=== PATIENT | male | born 1995 | race American Indian/Alaskan Native ===

== ENCOUNTER 2020-01-06 22:09 | Emergency (ER) | payer OTHER ==
[~2020-01-06] VITALS: Ht 177.8 cm; Wt 86.2 kg
== END 2020-01-06 23:58 | disposition home or self-care (01) ==
LOC: ER 22:09
DX: R05 Cough (principal); R06.02 Shortness of breath
CPT/HCPCS: 94640; 99283-25

== ENCOUNTER 2020-01-20 02:25 | Emergency (ER) | payer BC ==
[~2020-01-20] VITALS: Ht 177.8 cm; Wt 86.2 kg
[2020-01-20 03:44] LABS: BASOPHILS ABSOLUTE AUTO 0.05 K/mm3 (0.00-0.23); BASOPHILS PERCENT AUTO 1 % (0-2); EOSINOPHILS ABSOLUTE AUTO 0.22 K/mm3 (0.00-0.68); EOSINOPHILS PERCENT AUTO 3 % (0-6); Hematocrit 48.8 % (37.0-53.0); IMMATURE GRAN ABSOLUTE AUTO 0.05 K/mm3 (0.00-0.10); IMMATURE GRAN PERCENT AUTO 1 % (0-1); LYMPHOCYTES ABSOLUTE AUTO 2.61 K/mm3 (0.84-5.20); LYMPHOCYTES PERCENT AUTO 33 % (21-46); MONOCYTES ABSOLUTE AUTO 0.74 K/mm3 (0.16-1.47); MONOCYTES PERCENT AUTO 9 % (4-13); Mean Corpuscular HGB 27.1 pg (26.0-34.0); Mean Corpuscular HGB Conc 32.8 g/dL (31.5-36.5); Mean Corpuscular Volume 83 fL (80-100); Mean Platelet Volume 9.2 fL (9.1-12.4); NEUTROPHILS ABSOLUTE AUTO 4.32 K/mm3 (1.96-9.15); NEUTROPHILS PERCENT AUTO 54 % (41-73); Platelet Count 299 K/mm3 (150-400); RDW Coefficient Variation 12.7 % (11.7-14.2); RDW Standard Deviation 38.5 fL (35.1-46.3); White Blood Cell Count 7.99 K/mm3 (4.00-11.30)
[2020-01-20 04:09] LABS: Alanine Aminotransfer (ALT/SGP 38 U/L (12-78); Albumin/Globulin Ratio 1.2 (0.8-1.8); Alk Phos 68 U/L (50-136); Anion Gap 6 mmol/L (6-16); Aspartate Aminotrans (AST/SGOT 23 U/L (12-37); Bilirubin, Total 0.1 mg/dL (0.1-1.0); Blood Urea Nitrogen 12 mg/dL (8-24); Bun/Creatinine Ratio 14.7 (12.0-20.0); CO2, Blood 26 mmol/L (21-32); Calcium, Blood 8.6 mg/dL (8.5-10.1); Chloride, Blood 109 mmol/L (98-108); Creatinine, Blood 0.82 mg/dL (0.60-1.20); Globulin, Blood 3.2 g/dL (2.2-4.0); Glomerular Filtration Rate >60 (60-); Glucose, Blood 115 mg/dL (70-99); Potassium, Blood 3.4 mmol/L (3.5-5.5); Sodium, Blood 141 mmol/L (136-145); Total Protein, Blood 7.2 g/dL (6.4-8.2)
== END 2020-01-20 04:49 | disposition home or self-care (01) ==
LOC: ER 02:25
PROVIDERS: Student in an Organized Health Care Education/Training Program
DX: R10.13 Epigastric pain (principal); F17.200 Nicotine dependence, unspecified, uncomplicated
CPT/HCPCS: 36415; 80053; 83690; 85025; 99283

== ENCOUNTER 2020-04-04 17:54 | Emergency (ER) | payer BC ==
[~2020-04-04] VITALS: Ht 180.3 cm; Wt 90.7 kg
[2020-04-04] MEDS ORDERED: Percocet 5-3251 EACH PO (21:41)
== END 2020-04-04 22:19 | disposition home or self-care (01) ==
LOC: ER 17:54
DX: S82.841A Displaced bimalleolar fracture of right lower leg, initial encounter for closed fracture (principal); F17.200 Nicotine dependence, unspecified, uncomplicated; X50.1XXA Overexertion from prolonged static or awkward postures, initial encounter; Y93.89 Activity, other specified
CPT/HCPCS: 27810; 29505; 73600; 76000; 96374-59; 99152; 99283-25; A9270; J2704; J3010; J7030

== ENCOUNTER 2021-05-21 01:02 | Emergency (ER) | payer BC ==
[~2021-05-21] VITALS: Ht 177.8 cm; Wt 90.7 kg
[~2021-05-21 01:02] MED LIST: Percocet 5-3251 EACH PO
== END 2021-05-21 03:34 | disposition home or self-care (01) ==
LOC: ER 01:02
DX: M79.661 Pain in right lower leg (principal)
CPT/HCPCS: 99282

== ENCOUNTER 2021-09-02 06:36 | Emergency (ER) | payer BC ==
[~2021-09-02] VITALS: Ht 175.3 cm; Wt 86.2 kg
[2021-09-02] MEDS ORDERED: ONDA4ODT MM (09:05)
[2021-09-02] MEDS ORDERED: OMEP20ER PO (09:05)
== END 2021-09-02 09:15 | disposition home or self-care (01) ==
LOC: ER 06:36
DX: U07.1 COVID-19 (principal); K29.70 Gastritis, unspecified, without bleeding; F17.210 Nicotine dependence, cigarettes, uncomplicated
CPT/HCPCS: 99283

== ENCOUNTER 2022-01-11 00:06 | Emergency (ER) | payer BC ==
[~2022-01-11] VITALS: Ht 170.2 cm; Wt 86.2 kg
[~2022-01-11 00:06] MED LIST changes: +OMEP20ER PO; +ONDA4ODT MM
== END 2022-01-11 00:49 | disposition home or self-care (01) ==
LOC: ER 00:06
DX: S61.212A Laceration without foreign body of right middle finger without damage to nail, initial encounter (principal); F17.210 Nicotine dependence, cigarettes, uncomplicated; W45.8XXA Other foreign body or object entering through skin, initial encounter; Z79.899 Other long term (current) drug therapy
CPT/HCPCS: 12001; 99282

== ENCOUNTER 2022-09-22 13:15 | Emergency (ER) | payer OTHER, BC ==
[~2022-09-22] VITALS: Ht 177.8 cm; Wt 86.2 kg
[2022-09-22 13:45] VITALS: BP 123/87
[2022-09-22] MEDS ORDERED: MORP15ER PO ×2 (15:59→16:03)
[2022-09-22] MEDS ORDERED: ONDA4ODT MM ×2 (15:59→16:03)
== END 2022-09-22 16:18 | disposition home or self-care (01) ==
LOC: ER 13:15
DX: S92.331A Displaced fracture of third metatarsal bone, right foot, initial encounter for closed fracture (principal); S92.341A Displaced fracture of fourth metatarsal bone, right foot, initial encounter for closed fracture; S92.351A Displaced fracture of fifth metatarsal bone, right foot, initial encounter for closed fracture; F17.200 Nicotine dependence, unspecified, uncomplicated; V20.49XA Other motorcycle driver injured in collision with pedestrian or animal in traffic accident, initial encounter
CPT/HCPCS: 29515; 73502; 73610; 73630; 96374-59; 96375-59; 99283-25; A9270; J1885; J3010

== ENCOUNTER 2022-09-27 19:42 | Emergency (ER) | payer OTHER, BC ==
[~2022-09-27] VITALS: Ht 175.3 cm; Wt 87.1 kg
[~2022-09-27 19:42] MED LIST changes: +MORP15ER PO
[2022-09-27 19:47] VITALS: BP 121/80
[2022-09-27] MEDS ORDERED: MORP15ER PO (20:24)
== END 2022-09-27 20:45 | disposition home or self-care (01) ==
LOC: ER 19:42
DX: Z76.0 Encounter for issue of repeat prescription (principal); T84.197D Other mechanical complication of internal fixation device of bone of left lower leg, subsequent encounter; S92.331D Displaced fracture of third metatarsal bone, right foot, subsequent encounter for fracture with routine healing; S92.341D Displaced fracture of fourth metatarsal bone, right foot, subsequent encounter for fracture with routine healing; S92.351D Displaced fracture of fifth metatarsal bone, right foot, subsequent encounter for fracture with routine healing; Z72.0 Tobacco use
CPT/HCPCS: 96372; 99281-25; A9270; J1885

== ENCOUNTER 2023-04-22 08:53 | Day surgery (SDC) | payer BC ==
[~2023-04-22] VITALS: Ht 175.3 cm; Wt 94.8 kg
[~2023-04-22 08:53] MED LIST changes: +Ropivacaine 0.5% HCl/Pf 5 MG/ML 20ML VIAL ONE
[2023-04-22] MEDS ORDERED: NS 50 ML IV ONE (09:04)
[2023-04-22] MEDS ORDERED: CeFAZolin Sodium 2,000 MG VIAL ONE (09:04)
[2023-04-22] MEDS ORDERED: Lactated Ringer's 1,000 ML IV ONE ×2 (09:20→11:34)
--- NOTE | 2023-04-22 10:21 | NUR ---
04/22/23 1021 JANIE THOMPSON PT RESTING IN PREOP - WAITING TO GO BACK. DR. PINO 20 MINS DELAYED. PT HAS CALL LIGHT IN REACH.
[2023-04-22] MEDS ORDERED: propofoL 20 ML IV ONE (10:50)
[2023-04-22] MEDS ORDERED: FentaNYL Citrate 50 MCG/ML 2 ML Injection ONE ×3 (10:50→13:18)
[2023-04-22] MEDS ORDERED: Ondansetron HCl 2 MG / ML 2ML Vial ONE (11:01)
[2023-04-22] MEDS ORDERED: Rocuronium Bromide 10 MG/ML 5ML Injection IV ONE (11:01)
[2023-04-22] MEDS ORDERED: Dexamethasone Sod Phos 10 MG/ML 1ML VIAL ONE (11:01)
[2023-04-22] MEDS ORDERED: EPINEPhrine HCl 1 MG/ML 1ML Amp XX ONE (11:03)
--- NOTE | 2023-04-22 11:10 | NUR ---
04/22/23 1110 Faye Oropeza ROPIVACAINE 0.5% 20 ML MIXED & VERIFIED W/ EPI 0.1 ML (1MG/ML) TO MAKE ROPIVACAINE 0.5% 1:200,000 FOR INJECTION AT [facility] BY DR PINO.
[2023-04-22] MEDS ORDERED: Sugammadex Sodium 200 MG/2ML SDV (100 MG/ML) ONE (11:49)
[2023-04-22] MEDS ORDERED: HYDROcodone 5-APAP 325 TAB ONE (12:47)
[2023-04-22 13:32] VITALS: BP 120/87
== END 2023-04-22 13:45 | disposition home or self-care (01) ==
LOC: ORSCSDS 08:53
PROVIDERS: Podiatrist Foot & Ankle Surgery
PROC: 0SGP04Z Fusion of Right Toe Phalangeal Joint with Internal Fixation Device, Open Approach (ICD-10-PCS; principal; 2023-04-22 10:15)
DX: M20.41 Other hammer toe(s) (acquired), right foot (principal); K21.9 Gastro-esophageal reflux disease without esophagitis; F17.210 Nicotine dependence, cigarettes, uncomplicated
CPT/HCPCS: A9270; C1713; J0171; J0690; J1100; J2405; J2704; J2795; J3010; J7120

== ENCOUNTER → 2023-11-26 | Outpatient (CLI) | payer BC ==
[~2023-11-26] MED LIST changes: +DOC250 PO; +ONDA4 PO; +OXYC5 PO; -Ropivacaine 0.5% HCl/Pf 5 MG/ML 20ML VIAL ONE; +SENN187 PO
[2023-11-29 19:55] LABS: APTIMA MEDIA TYPE Urine; C. TRACHOMATIS BY TMA Positive (Negative); N. GONORRHOEAE BY TMA Negative (Negative); SPECIMEN SOURCE Urine
== END ==
LOC: LAB 15:15 → LAB SHORT 15:15
PROVIDERS: Physician Assistant
DX: Z20.2 Contact with and (suspected) exposure to infections with a predominantly sexual mode of transmission (principal)
CPT/HCPCS: 87491; 87591

== ENCOUNTER 2024-09-11 01:34 | Emergency (ER) | payer OTHER, BC ==
[~2024-09-11] VITALS: Ht 177.8 cm; Wt 90.7 kg
[2024-09-11 02:13] LABS: BASOPHILS ABSOLUTE AUTO 0.03 K/mm3 (0.00-0.23); BASOPHILS PERCENT AUTO 0 % (0-2); EOSINOPHILS ABSOLUTE AUTO 0.05 K/mm3 (0.00-0.68); EOSINOPHILS PERCENT AUTO 1 % (0-6); Hematocrit 46.7 % (37.0-53.0); Hemoglobin 16.2 g/dL (13.5-17.5); IMMATURE GRAN ABSOLUTE AUTO 0.02 K/mm3 (0.00-0.10); IMMATURE GRAN PERCENT AUTO 0 % (0-1); LYMPHOCYTES ABSOLUTE AUTO 1.75 K/mm3 (0.84-5.20); LYMPHOCYTES PERCENT AUTO 20 % (21-46); MONOCYTES ABSOLUTE AUTO 0.81 K/mm3 (0.16-1.47); MONOCYTES PERCENT AUTO 9 % (4-13); Mean Corpuscular HGB Conc 34.7 g/dL (31.5-36.5); Mean Corpuscular Volume 82 fL (80-100); NEUTROPHILS ABSOLUTE AUTO 6.06 K/mm3 (1.96-9.15); NEUTROPHILS PERCENT AUTO 70 % (41-73); NRBC ABSOLUTE 0.00 K/mm3 (0.00-0.02); NRBC Auto 0.0 /100 WBC (0.0-0.2); Platelet Count 263 K/mm3 (150-400); RDW Coefficient Variation 13.1 % (11.7-14.2); RDW Standard Deviation 39.0 fL (35.1-46.3)
[2024-09-11] MEDS ORDERED: Ondansetron HCl 2 MG / ML 2ML Vial IV ONE (02:15)
[2024-09-11] MEDS ORDERED: Ketorolac Tromethamine 15mg Vial IV ONE (02:15)
[2024-09-11 02:36] LABS: Alanine Aminotransfer (ALT/SGP 85.0 U/L (12-78); Albumin, Blood 3.8 g/dL (3.4-5.0); Albumin/Globulin Ratio 1.2 (0.8-1.8); Anion Gap 9.0 mmol/L (3-11); Aspartate Aminotrans (AST/SGOT 32.0 U/L (12-37); Bilirubin, Total 0.4 mg/dL (0.1-1.0); Blood Urea Nitrogen 12.0 mg/dL (8-24); CO2, Blood 28.0 mmol/L (21-32); Calcium, Blood 8.6 mg/dL (8.5-10.1); Chloride, Blood 106.0 mmol/L (98-108); Creatinine, Blood 0.89 mg/dL (0.60-1.20); Globulin, Blood 3.2 g/dL (2.2-4.0); Glucose, Blood 115.0 mg/dL (70-99); Potassium, Blood 3.3 mmol/L (3.5-5.5); Sodium, Blood 140.0 mmol/L (136-145); Total Protein, Blood 7.0 g/dL (6.4-8.2)
[2024-09-11] MEDS ORDERED: RX Prepack 6 Tabs Oxycodone 5mg UD ONE (03:45)
[2024-09-11] MEDS ORDERED: ONDA4ODT MM (04:17)
[2024-09-11] MEDS ORDERED: Roxicodone5 MG PO (04:17)
[2024-09-11 04:31] VITALS: BP 133/98
== END 2024-09-11 04:31 | disposition home or self-care (01) ==
LOC: ER 01:34
PROVIDERS: Emergency Medicine
DX: M84.463A Pathological fracture, right fibula, initial encounter for fracture (principal); M84.461A Pathological fracture, right tibia, initial encounter for fracture; V89.2XXA Person injured in unspecified motor-vehicle accident, traffic, initial encounter
CPT/HCPCS: 29105; 73590; 80053; 83690; 84484; 85025; 86140; 93005; 93010; 93971; 96374-59; 96375-59; 99284-25; A9270; J1885; J2405

== ENCOUNTER 2025-01-13 20:09 | Emergency (ER) | payer BC ==
[~2025-01-13] VITALS: Ht 175.3 cm; Wt 90.7 kg
[~2025-01-13 20:09] MED LIST changes: +Roxicodone5 MG PO
[2025-01-13 20:30] VITALS: BP 155/93
== END 2025-01-13 20:38 | disposition home or self-care (01) ==
LOC: ER 20:09
DX: M79.601 Pain in right arm (principal)
CPT/HCPCS: 99282

== ENCOUNTER 2025-01-30 21:02 | Emergency (ER) | payer BC ==
[~2025-01-30] VITALS: Ht 175.3 cm; Wt 90.7 kg
[2025-01-30 21:11] VITALS: BP 141/95
[2025-01-30] MEDS ORDERED: Ketorolac Tromethamine 30mg Vial IM ONE (21:20)
[2025-01-30] MEDS ORDERED: RX Prepack 2 Tabs Ondansetron ODT 4MG UD ONE (21:20)
[2025-01-30] MEDS ORDERED: Ondansetron 4 MG SoluTab BC ONE (21:20)
[2025-01-30] MEDS ORDERED: ONDA4ODT MM (22:20)
[2025-01-31] MEDS ORDERED: BACTRIM DS TAB1 EAC1 PO (01:31)
== END 2025-01-30 22:21 | disposition home or self-care (01) ==
LOC: ER 21:02
DX: S01.01XA Laceration without foreign body of scalp, initial encounter (principal); R11.2 Nausea with vomiting, unspecified; F17.200 Nicotine dependence, unspecified, uncomplicated; Z23 Encounter for immunization; Z59.89 Other problems related to housing and economic circumstances; W22.8XXA Striking against or struck by other objects, initial encounter; Y93.72 Activity, wrestling
CPT/HCPCS: 70450; 72125; 90471; 90715; 96372; 99283-25; A9270; J1885

== ENCOUNTER 2025-02-02 23:07 | Emergency (ER) | payer BC ==
[~2025-02-02] VITALS: Ht 175.3 cm; Wt 95.2 kg
[~2025-02-02 23:07] MED LIST changes: +BACTRIM DS TAB1 EAC1 PO
[2025-02-02 23:29] VITALS: BP 138/100
[2025-02-02] MEDS ORDERED: RX Prepack 2 Tabs Ondansetron ODT 4MG UD ONE (23:30)
[2025-02-02] MEDS ORDERED: Ketorolac Tromethamine 30mg Vial IM ONE (23:30)
[2025-02-02] MEDS ORDERED: PROC5 PO (23:57)
== END 2025-02-03 00:14 | disposition home or self-care (01) ==
LOC: ER 23:07
DX: G44.309 Post-traumatic headache, unspecified, not intractable (principal); R42 Dizziness and giddiness; R11.0 Nausea; F07.81 Postconcussional syndrome; S01.91XD Laceration without foreign body of unspecified part of head, subsequent encounter; F17.200 Nicotine dependence, unspecified, uncomplicated; Z59.89 Other problems related to housing and economic circumstances; X58.XXXD Exposure to other specified factors, subsequent encounter
CPT/HCPCS: 96372; 99282-25; A9270; J1885